=== PATIENT | female | born 1985 | race Two or more races ===

== ENCOUNTER 2018-09-29 10:49 | Outpatient (CLI) | payer OTHER ==
[~2018-09-29 10:49] MED LIST: AMOX500T PO; IRON1TAB60 PO; PREN1TAB60 PO
== END 2018-09-29 23:59 | disposition home or self-care (01) ==
LOC: RAD 10:49
PROVIDERS: ATTEND Internal Medicine Hematology & Oncology
DX: R76.12 Nonspecific reaction to cell mediated immunity measurement of gamma interferon antigen response without active tuberculosis (principal)